=== PATIENT | female | born 1975 | race Caucasian/White ===

== ENCOUNTER → 2021-12-12 | Outpatient (CLI) | payer MEDICAID | LOC: KOH-I 10:30 | DX: M25.572 Pain in left ankle and joints of left foot (principal); S82.402A Unspecified fracture of shaft of left fibula, initial encounter for closed fracture; X58.XXXA Exposure to other specified factors, initial encounter; M25.472 Effusion, left ankle | CPT/HCPCS: 73721 ==

== ENCOUNTER → 2022-03-25 | Outpatient (CLI) | payer OTHER ==
[~2022-03-25] MED LIST: FOLIC ACID PO; IRON PO; METHOTREXATE T2.5 MG PO; MULTI VITAMIN PO; PLAQUENIL200 MG PO; VITAMIN B12 PO; VITAMIN D PO
[2022-03-25 11:41] LABS: HEMOGLOBIN 11.1 gm/dl (12.3-15.3); RED BLOOD COUNT 3.9 M/UL (4.00-5.10)
[2022-03-25 11:56] LABS: BUN/CREATININE RATIO 20 (0-10)
== END ==
LOC: EDSTATUS 09:00 → OPSV2 09:00
PROVIDERS: Anesthesiology
DX: Z01.812 Encounter for preprocedural laboratory examination (principal)
CPT/HCPCS: 80048; 85025

== ENCOUNTER 2022-04-04 11:10 | Day surgery (SDC) | payer OTHER ==
[~2022-04-04] VITALS: Ht 152.4 cm; Wt 67.1 kg
[~2022-04-04 11:10] MED LIST changes: +GABAPENTIN300 MG PO; +ONDANSETRON HCL4 MG PO; +ROXICODONE TAB 55 MG PO
[2022-04-04 12:15] LABS: BUN/CREATININE RATIO 17 (0-10)
[2022-04-05] MEDS ORDERED: CELECOXIB200 MG PO (09:38)
== END 2022-04-05 14:43 | disposition home health service (06) ==
LOC: OR 11:10 → EDSTATUS 12:45 → OR 15:00 → M/S 18:13 → OR 04-05 14:43
PROVIDERS: Orthopaedic Surgery
DX: M06.861 Other specified rheumatoid arthritis, right knee (principal); M79.4 Hypertrophy of (infrapatellar) fat pad; J45.909 Unspecified asthma, uncomplicated; Z20.822 Contact with and (suspected) exposure to COVID-19; Z88.6 Allergy status to analgesic agent
CPT/HCPCS: 36415; 73560; 80048; 86850; 86900; 86901; 97116; 97161; C1713; C9113; J0171; J0690; J1100; J2250; J2274; J2405; J2704; J2795; J7120